=== PATIENT | female | born 1975 | race Two or more races ===

== ENCOUNTER 2025-07-11 08:45 | Day surgery (SDC) | payer OTHER ==
[~2025-07-11 08:45] MED LIST: DIPHENHYDRAMINE HCL 50 MG/ML VIAL 1ML IV ONE
[2025-07-11] MEDS ORDERED: fentaNYL CITRATE 50 MCG/ML AMPUL IV PUSH ONE (14:00)
[2025-07-11] MEDS ORDERED: MIDAZOLAM HCL 2 MG/2 ML VIAL IV PUSH ONE (14:00)
== END 2025-07-11 09:30 | disposition home or self-care (01) ==
LOC: AMB-ENDOS 08:45
PROVIDERS: ATTEND Surgery
DX: K21.9 Gastro-esophageal reflux disease without esophagitis (principal); R10.13 Epigastric pain; E66.09 Other obesity due to excess calories